=== PATIENT | male | born 1995 | race Caucasian/White ===

== ENCOUNTER 2017-02-21 21:50 | Emergency (ER) | payer OTHER ==
[~2017-02-21] VITALS: Ht 175.3 cm; Wt 65.8 kg
[2017-02-21 21:54] VITALS: BP 114/64
--- NOTE | 2017-02-21 23:17 | NUR ---
Patient ambulated to bed 05.
--- NOTE | 2017-02-21 23:56 | NUR ---
Dr. Manzanares evaluating patient at bedside.
[2017-02-22] MEDS ORDERED: LIDOCAINE 1% 500 MG/50 ML VIAL INJ ONE (00:05)
[2017-02-22] MEDS ORDERED: ACETAMINOPHEN 325 MG TAB PO ONE (00:05)
[2017-02-22 00:48] VITALS: BP 115/62
--- NOTE | 2017-02-22 00:48 | NUR ---
Patient discharged with v/s stable PER DR ZUNIGA. Written and verbal after care instructions given and explained PER DR ZUNIGA. Patient verbalized understanding. Ambulatory with steady gait. All questions addressed prior to discharge PER DR ZUNIGA. Advised to follow up with PMD. D/C NOTE ONLY.
== END 2017-02-22 00:48 | disposition home or self-care (01) ==
LOC: MED 21:50
DX: S01.511A Laceration without foreign body of lip, initial encounter (principal); V47.5XXA Car driver injured in collision with fixed or stationary object in traffic accident, initial encounter; Y93.89 Activity, other specified; Y92.89 Other specified places as the place of occurrence of the external cause; Y99.8 Other external cause status